=== PATIENT | female | born 1935 | race Two or more races ===

== ENCOUNTER 2017-08-11 13:11 | Emergency (ER) | payer OTHER ==
[~2017-08-11] VITALS: Ht 152.4 cm; Wt 61.2 kg
[~2017-08-11 13:11] MED LIST: ATACAND32 MG PO; SULAR20 MG PO
== END 2017-08-11 17:56 | disposition home or self-care (01) ==
LOC: ER 13:11
DX: S00.03XA Contusion of scalp, initial encounter (principal); W18.09XA Striking against other object with subsequent fall, initial encounter; Y93.01 Activity, walking, marching and hiking; Y92.480 Sidewalk as the place of occurrence of the external cause; Y99.8 Other external cause status

== ENCOUNTER → 2019-06-12 | Outpatient (CLI) | payer OTHER | END | disposition home or self-care (01) | LOC: MRI 12:59 | DX: I67.82 Cerebral ischemia (principal) | CPT/HCPCS: 70551 ==

== ENCOUNTER 2021-02-17 12:18 | Inpatient (IN) | payer OTHER ==
[~2021-02-17] VITALS: Ht 162.6 cm; Wt 68.0 kg
== END 2021-02-19 18:44 | disposition home or self-care (01) | DRG 812 ==
LOC: ER 12:18 → SEC-K 18:40 → SURG 18:40
PROVIDERS: ADMIT Internal Medicine; ATTEND Internal Medicine
PROC: 30233N1 Transfusion of Nonautologous Red Blood Cells into Peripheral Vein, Percutaneous Approach (ICD-10-PCS; principal; 2021-02-18)
PROC: 4A12X4Z Monitoring of Cardiac Electrical Activity, External Approach (ICD-10-PCS; 2021-02-18)
DX: D64.9 Anemia, unspecified (principal); R42 Dizziness and giddiness; R10.13 Epigastric pain; Z20.822 Contact with and (suspected) exposure to COVID-19; I10 Essential (primary) hypertension

== ENCOUNTER 2021-04-22 21:36 | Emergency (ER) | payer OTHER ==
[~2021-04-22] VITALS: Ht 157.5 cm; Wt 61.2 kg
[2021-04-22] MEDS ORDERED: TOPROL XL50 M1 (21:41)
[2021-04-22] MEDS ORDERED: MICARDIS HCT 81 EACH (21:42)
== END 2021-04-22 23:09 | disposition home or self-care (01) ==
LOC: ER 21:36
DX: K64.4 Residual hemorrhoidal skin tags (principal)

== ENCOUNTER 2021-07-28 20:55 | Emergency (ER) | payer OTHER ==
[~2021-07-28] VITALS: Ht 157.5 cm; Wt 61.7 kg
[~2021-07-28 20:55] MED LIST changes: +MICARDIS HCT 81 EACH; +TOPROL XL50 M1
[2021-07-28] MEDS ORDERED: CLONAZEPAM2 MG (21:05)
== END 2021-07-28 21:52 | disposition home or self-care (01) ==
LOC: ER 20:55
DX: M25.511 Pain in right shoulder (principal); S29.9XXA Unspecified injury of thorax, initial encounter; W06.XXXA Fall from bed, initial encounter; Y93.89 Activity, other specified; Y92.013 Bedroom of single-family (private) house as the place of occurrence of the external cause

== ENCOUNTER 2022-12-16 12:53 | Emergency (ER) | payer OTHER ==
[~2022-12-16] VITALS: Ht 152.4 cm; Wt 65.8 kg
[~2022-12-16 12:53] MED LIST changes: +CLONAZEPAM2 MG
== END 2022-12-16 18:22 | disposition home or self-care (01) ==
LOC: ER 12:53
DX: S62.109A Fracture of unspecified carpal bone, unspecified wrist, initial encounter for closed fracture (principal); W19.XXXA Unspecified fall, initial encounter; Y93.89 Activity, other specified; Y92.89 Other specified places as the place of occurrence of the external cause; Z88.0 Allergy status to penicillin; Z88.8 Allergy status to other drugs, medicaments and biological substances
CPT/HCPCS: 29125; 73030; 73060; 73080; 73090; 96372; 99284; J1885

== ENCOUNTER 2023-11-27 18:11 | Emergency (ER) | payer OTHER ==
[~2023-11-27] VITALS: Ht 152.4 cm; Wt 59.0 kg
[2023-11-27] MEDS ORDERED: GUAIFENESIN/DEXTROMETHORPHAN 10ML BLIST.PACK PO ONE ×2 (19:15→19:16)
[2023-11-27] MEDS ORDERED: METHYLPREDNISOLONE SOD SUCC 125 MG VIAL IV ONE (19:15)
[2023-11-27] MEDS ORDERED: METHYLPREDNISOLONE SOD SUCC 125 MG VIAL ONE (19:16)
[2023-11-27 19:45] LABS: HEMATOCRIT 34.3 % (36.0-45.00); HEMOGLOBIN 11.2 g/dL (12.0-15.00); MEAN CELL VOLUME 83.3 fL (80.00-100.00); MEAN CORPUSCULAR HEMOGLOBIN 27.3 pg (27.00-32.0); MEAN CORPUSCULAR HGB CONC 32.8 g/dl (32.0-36.0); PLATELET COUNT 323 K/uL (150-450); RED BLOOD COUNT 4.11 M/uL (4.00-6.00); RED CELL DISTRIBUTION WIDTH 14.5 % (11.5-14.5)
[2023-11-27 20:11] LABS: BILIRUBIN TOTAL 0.35 mg/dL (0.3-1.2); CALCIUM 9.6 mg/dL (8.5-10.1); CREATININE SERUM 1.16 mg/dL (0.55-1.02); GFR 44.09; GLOBULINA 5.8 G/DL (2.4-3.5); POTASSIUM 4.33 mEq/L (3.5-5.1); TOTAL PROTEIN 8.8 gm/dL (6.4-8.2)
[2023-11-27] MEDS ORDERED: ANALPRAM HC 2.530 GM RECTAL (21:52)
[2023-11-27] MEDS ORDERED: TUSNEL LIQUID178 ML PO (21:52)
[2023-11-27] MEDS ORDERED: ZITHROMAX500 MG PO (21:52)
== END 2023-11-27 22:01 | disposition home or self-care (01) ==
LOC: ER 18:12
PROVIDERS: General Practice
DX: K64.9 Unspecified hemorrhoids (principal); M94.0 Chondrocostal junction syndrome [Tietze]; R10.9 Unspecified abdominal pain; Z20.822 Contact with and (suspected) exposure to COVID-19; I10 Essential (primary) hypertension; Z88.0 Allergy status to penicillin; Z88.6 Allergy status to analgesic agent

== ENCOUNTER 2024-11-24 09:45 | Inpatient (IN) | payer OTHER ==
[~2024-11-24] VITALS: Ht 165.1 cm; Wt 65.8 kg
[~2024-11-24 09:45] MED LIST changes: +ANALPRAM HC 2.530 GM RECTAL; +TUSNEL LIQUID178 ML PO; +ZITHROMAX500 MG PO
[2024-11-24 10:03] VITALS: BP 127/68; O2SAT 97
--- NOTE | 2024-11-24 10:04 | NUR ---
PACIENTE FEMINA, ESTABLE, S/V EN PARAMETROS NORMALES, C/C SANGRADO RECTAL, UBICADA EN CAMA 8 EN ESPERA SER EVALUADA POR .
[2024-11-24] MEDS ORDERED: 0.9 % SODIUM CHLORIDE 1,000 ML IV SCH ×2 (11:15→21:45)
[2024-11-24 13:11] LABS: BASO % 0.6 % (0.1-1.2); EOS # 0.06 (0.04-0.54); EOS % 0.6 % (0.7-7.0); LYMPH # 1.98 (1.18-3.74); LYMPH % 19.7 % (19.3-53.1); MEAN PLATELET VOLUME 10.40 fl (9.4-12.4); MONO # 0.57 (0.24-0.82); MONO % 5.7 % (4.7-12.5); NEUT # 7.36 (1.56-6.13); NEUT % 73.1 % (34.0-71.1); RED CELL DISTRIBUTION WIDTH 13.8 % (11.6-14.4)
[2024-11-24 13:31] LABS: INR 1.09
[2024-11-24 13:38] LABS: BUN CREA RATIO 18.0 (7.0-25.0); CREATININE SERUM 1.04 mg/dL (0.55-1.02); GFR 49.89; GLUCOSE FASTING 107.0 mg/dL (65-100); OSMOLALITY SERUM 290.0 MOSM/KG (275-295)
--- NOTE | 2024-11-24 13:46 | NUR ---
PTE EVALUADO POR DR. IBRAHIM, PRESENTANDO DOLOR ABDOMINAL, SE COLECTAN MUESTRAS DE JOVITA BAJO MEDIDAS ASEPTICA, SE REALIZA EKG Y SE ORIENTA SOBRE PROCEDIMIENTOS RELAIZADOS. CLIENTE ALERTA Y ORIENTADO AL MOMENTO DE LA INTERVENCION POR RN, SE ENCUENTRA TOMANDO CONTRASTE PO PARA REALIZACION DE ESTUDIO RADIOLOGICO.
[2024-11-24 14:55] LABS: URINE APPEARANCE Clear; URINE BILIRRUBIN Negative (NEGATIVE); URINE BLOOD Negative; URINE COLOR Yellow; URINE GLUCOSE Negative (NEGATIVE); URINE KETONE Negative (NEGATIVE); URINE LEUKOCYTE Small; URINE NITRATE Negative; URINE PROTEIN Negative (NEGATIVE); URINE UROBILINOGEN 0.2 E.U./dl
[2024-11-24 14:58] LABS: URINE BACTERIA 338.3 uL (0.0-1933); URINE EPITHELIAL CELLS 23.8 uL (0.0-38.8); URINE WBC 24.2 uL (0.0-23.2)
[2024-11-24 15:08] LABS: URINE CAST 0.29 uL (0.0-1.40); URINE RBC 0.5 uL (0.0-20.8)
--- NOTE | 2024-11-24 16:36 | NUR ---
PTE PENDIENTE A RESULTADO DE CT.
[2024-11-24] MEDS ORDERED: PANTOPRAZOLE SODIUM 40 MG/VIAL VIAL IV SCH (21:43)
[2024-11-24] MEDS ORDERED: CIPROFLOXACIN IN 5 % DEXTROSE 200 ML IV SCH (21:43)
[2024-11-24] MEDS ORDERED: ONDANSETRON HCL 4 MG in 0.9 % SODIUM CHLORIDE 50 ML IV PRN (21:45)
[2024-11-24] MEDS ORDERED: CLONAZEPAM 1 MG TABLET PO ONE (23:00)
[2024-11-25] MEDS ORDERED: METOPROLOL SUCCINATE 50 MG TAB.SR.24H PO SCH (09:00)
== END 2024-11-25 07:00 | disposition left against medical advice (07) | DRG 379 ==
LOC: ER 09:45 → SEC-K 22:02
PROVIDERS: Emergency Medicine; ADMIT Internal Medicine; ATTEND Internal Medicine
PROC: BW21ZZZ Computerized Tomography (CT Scan) of Abdomen and Pelvis (ICD-10-PCS; principal; 2024-11-24)
DX: K62.5 Hemorrhage of anus and rectum (principal); Z53.29 Procedure and treatment not carried out because of patient's decision for other reasons

== ENCOUNTER 2024-11-27 15:27 | Inpatient (IN) | payer OTHER ==
[~2024-11-27] VITALS: Ht 157.5 cm; Wt 59.0 kg
[2024-11-27] MEDS ORDERED: PEPCID AC10 MG PO (15:48)
[2024-11-27] MEDS ORDERED: MICARDIS20 MG PO (15:48)
[2024-11-27] MEDS ORDERED: PROTONIX20 MG (15:48)
--- NOTE | 2024-11-27 15:48 | NUR ---
SE RECIBE PACIENTE EN AMBULANCIA ALERTA Y CONCIENTE X3 ACOMPANADO DE QUINTERO HIJA. LA MISMA REFIERE QUE LA PACIENTE VIENE POR ANEMIA. SE PROPCEDE A LOGAN S/V A LA PACIENTE Y SE UBICA.
[2024-11-27] MEDS ORDERED: PANTOPRAZOLE SODIUM 40 MG in 0.9 % SODIUM CHLORIDE 8 ML IV PUSH STA (16:16)
[2024-11-27] MEDS ORDERED: CIPROFLOXACIN IN 5 % DEXTROSE 400 MG/200 ML PIGGYBAG IV ONE ×2 (16:29→16:30)
[2024-11-27] MEDS ORDERED: METRONIDAZOLE/SODIUM CHLORIDE 500 MG/100 ML PIGGYBACK IV ONE ×2 (16:29→16:30)
[2024-11-27] MEDS ORDERED: 0.9 % SODIUM CHLORIDE 1,000 ML IV SCH ×3 (16:30→18:00)
[2024-11-27 17:21] LABS: BASO % 0.6 % (0.1-1.2); EOS # 0.27 (0.04-0.54); EOS % 2.8 % (0.7-7.0); LYMPH # 2.61 (1.18-3.74); LYMPH % 27.4 % (19.3-53.1); MEAN PLATELET VOLUME 10.60 fl (9.4-12.4); MONO # 0.89 (0.24-0.82); MONO % 9.3 % (4.7-12.5); NEUT # 5.68 (1.56-6.13); NEUT % 59.6 % (34.0-71.1); RED CELL DISTRIBUTION WIDTH 14.2 % (11.6-14.4)
--- NOTE | 2024-11-27 17:32 | NUR ---
MR. BALDWIN EDUCA A PTE SOBRE TX MEDICO, SE CARLO MUESTRAS DE LABORATORIO UTILIZANDO MEDIDAS ASEPTICAS. SE COLOCA H/L TREVER DE EDEMA. SE ADMINISTRAN MEDICAMENTOS ROHINI ORDEN MEDICA.
[2024-11-27 17:39] LABS: INR 1.02
[2024-11-27 17:45] LABS: ALT/SGPT 16.0 U/L (12-78); AST/SGOT 24.0 U/L (15-37); BILIRUBIN TOTAL 0.33 mg/dL (0.3-1.2); BUN CREA RATIO 13.0 (7.0-25.0); CREATININE SERUM 1.29 mg/dL (0.55-1.02); GFR 38.91; GLOBULINA 4.4 G/DL (2.4-3.5); GLUCOSE FASTING 99.0 mg/dL (65-100); OSMOLALITY SERUM 288.0 MOSM/KG (275-295)
--- NOTE | 2024-11-27 17:58 | NUR ---
SE ORIENTA PACIENTE SOBRE TX MEDICO Y EL MISMO REFIERE ENTENDER Y ACEPTAR FELICITY. SE PROCDEDE A LOGAN MUESTRAS DE LAB. BAJO MEDIDAS ASSEPTICAS. SE PROCEDE A CANALIZAR PACIENTE BAJO MEDIDAS ASEPTICAS TREVER DE EDEMA Y ERITEMA. SE PROCEDE A ADMINISTRAR MEDICAMENTO ROHINI ORDEN MEDICA BAJO MEDIDAS ASEPTICAS.
[2024-11-27] MEDS ORDERED: ONDANSETRON HCL 4 MG in 0.9 % SODIUM CHLORIDE 50 ML IV PRN (18:15)
[2024-11-27 18:40] LABS: URINE APPEARANCE Clear; URINE BILIRRUBIN Negative (NEGATIVE); URINE BLOOD Negative; URINE COLOR Yellow; URINE GLUCOSE Negative (NEGATIVE); URINE KETONE Negative (NEGATIVE); URINE LEUKOCYTE Trace; URINE NITRATE Negative; URINE PROTEIN Negative (NEGATIVE); URINE UROBILINOGEN 0.2 E.U./dl
[2024-11-27 18:44] LABS: URINE BACTERIA 57.5 uL (0.0-1933); URINE EPITHELIAL CELLS 4.1 uL (0.0-38.8); URINE WBC 20.8 uL (0.0-23.2)
[2024-11-27 18:52] LABS: URINE CAST 0.00 uL (0.0-1.40); URINE RBC 0.1 uL (0.0-20.8)
[2024-11-27] MEDS ORDERED: CIPROFLOXACIN IN 5 % DEXTROSE 200 ML IV SCH (21:00)
[2024-11-27] MEDS ORDERED: CLONAZEPAM 1 MG TABLET PO ONE (22:30)
[2024-11-28] MEDS ORDERED: METRONIDAZOLE/SODIUM CHLORIDE 500 MG/100 ML PIGGYBACK IV ONE ×3 (01:57→17:15)
[2024-11-28 07:29] VITALS: BP 175/91; O2SAT 96
[2024-11-28] MEDS ORDERED: hydrALAZINE HCL 20 MG VIAL IV PRN (07:45)
[2024-11-28] MEDS ORDERED: DIPHENHYDRAMINE HCL 50 MG/ML VIAL 1ML IV NR (09:00)
[2024-11-28] MEDS ORDERED: PANTOPRAZOLE SODIUM 40 MG/VIAL VIAL IV SCH (09:00)
[2024-11-28] MEDS ORDERED: METOPROLOL SUCCINATE 50 MG TAB.SR.24H PO SCH (09:00)
[2024-11-28] MEDS ORDERED: HALOPERIDOL LACTATE 5 MG/ML AMPUL IM NR (09:00)
[2024-11-28] MEDS ORDERED: CIPROFLOXACIN IN 5 % DEXTROSE 400 MG/200 ML PIGGYBAG IV ONE (09:25)
[2024-11-28] MEDS ORDERED: LACTOBACILLUS ACIDOPHILUS 1 CAP CAP PO SCH (17:00)
[2024-11-28] MEDS ORDERED: LACTOBACILLUS ACIDOPHILUS 1 CAP CAP PO ONE (17:16)
[2024-11-28 22:32] VITALS: BP 134/76; O2SAT 96
[2024-11-29 04:00] VITALS: BP 130/70; O2SAT 95
[2024-11-29 08:30] VITALS: BP 134/78; O2SAT 95
[2024-11-29] MEDS ORDERED: CIPROFLOXACIN IN 5 % DEXTROSE 200 ML IV SCH (09:00)
[2024-11-29 16:00] VITALS: BP 161/77; O2SAT 100
[2024-11-30 00:31] VITALS: BP 140/73; O2SAT 100
[2024-11-30 03:31] LABS: BASO % 0.4 % (0.1-1.2); EOS # 0.35 (0.04-0.54); EOS % 3.1 % (0.7-7.0); LYMPH # 1.75 (1.18-3.74); LYMPH % 15.7 % (19.3-53.1); MEAN PLATELET VOLUME 10.40 fl (9.4-12.4); MONO # 1.60 (0.24-0.82); NEUT # 7.38 (1.56-6.13); NEUT % 66.3 % (34.0-71.1); RED CELL DISTRIBUTION WIDTH 14.6 % (11.6-14.4)
[2024-11-30 03:36] LABS: MONO % 14.3 % (4.7-12.5)
[2024-11-30 03:49] LABS: BUN CREA RATIO 12.0 (7.0-25.0); CREATININE SERUM 1.01 mg/dL (0.55-1.02); GFR 51.61; GLUCOSE FASTING 129.0 mg/dL (65-100); OSMOLALITY SERUM 286.0 MOSM/KG (275-295)
[2024-11-30] MEDS ORDERED: MAGNESIUM SULFATE IN WATER 50 ML IV NR (08:00)
[2024-11-30] MEDS ORDERED: CIPRO500 MG PO (08:16)
[2024-11-30] MEDS ORDERED: METRONIDAZOLE500 MG PO (08:17)
[2024-11-30] MEDS ORDERED: INTESTINEX680 M1 PO (08:18)
[2024-11-30 08:47] VITALS: BP 144/80; O2SAT 97
== END 2024-11-30 12:55 | disposition home or self-care (01) | DRG 392 ==
LOC: ER 15:27 → SEC-K 20:36 → SURH 11-28 21:25
PROVIDERS: General Practice; ADMIT Internal Medicine; ATTEND Internal Medicine
PROC: B24BYZZ Ultrasonography of Heart with Aorta using Other Contrast (ICD-10-PCS; principal; 2024-11-27)
PROC: 30233N1 Transfusion of Nonautologous Red Blood Cells into Peripheral Vein, Percutaneous Approach (ICD-10-PCS; 2024-11-28)
DX: K52.9 Noninfective gastroenteritis and colitis, unspecified (principal); K62.5 Hemorrhage of anus and rectum; D64.9 Anemia, unspecified

== ENCOUNTER 2024-12-12 04:19 | Emergency (ER) | payer OTHER ==
[~2024-12-12] VITALS: Ht 157.5 cm; Wt 59.0 kg
[~2024-12-12 04:19] MED LIST changes: +CIPRO500 MG PO; +INTESTINEX680 M1 PO; +METRONIDAZOLE500 MG PO; +MICARDIS20 MG PO; +PEPCID AC10 MG PO; +PROTONIX20 MG
[2024-12-12] MEDS ORDERED: CLONAZEPAM1 MG (04:37)
[2024-12-12 05:45] LABS: BASO % 0.7 % (0.1-1.2); EOS # 0.49 (0.04-0.54); EOS % 4.7 % (0.7-7.0); LYMPH # 2.41 (1.18-3.74); LYMPH % 23.0 % (19.3-53.1); MEAN PLATELET VOLUME 10.90 fl (9.4-12.4); MONO # 1.03 (0.24-0.82); MONO % 9.8 % (4.7-12.5); NEUT # 6.47 (1.56-6.13); NEUT % 61.5 % (34.0-71.1); RED CELL DISTRIBUTION WIDTH 15.2 % (11.6-14.4)
[2024-12-12 06:01] LABS: BUN CREA RATIO 12.0 (7.0-25.0); CREATININE SERUM 0.94 mg/dL (0.55-1.02); GLUCOSE FASTING 96.0 mg/dL (65-100); OSMOLALITY SERUM 284.0 MOSM/KG (275-295)
[2024-12-12 06:02] LABS: GFR 56.07
== END 2024-12-12 06:52 | disposition home or self-care (01) ==
LOC: ER 04:19
DX: S09.8XXA Other specified injuries of head, initial encounter (principal); W06.XXXA Fall from bed, initial encounter; Y93.89 Activity, other specified; Y92.89 Other specified places as the place of occurrence of the external cause; Y99.8 Other external cause status; K64.4 Residual hemorrhoidal skin tags; M43.6 Torticollis; Z88.0 Allergy status to penicillin; Z88.6 Allergy status to analgesic agent

== ENCOUNTER 2025-01-04 10:48 | Emergency (ER) | payer OTHER ==
[~2025-01-04] VITALS: Ht 157.5 cm; Wt 59.0 kg
[~2025-01-04 10:48] MED LIST changes: +CLONAZEPAM1 MG
[2025-01-04] MEDS ORDERED: 0.9 % SODIUM CHLORIDE 1,000 ML IV SCH (11:00)
[2025-01-04 11:54] LABS: BASO % 0.5 % (0.1-1.2); EOS # 0.15 (0.04-0.54); EOS % 1.6 % (0.7-7.0); LYMPH # 2.27 (1.18-3.74); LYMPH % 24.1 % (19.3-53.1); MEAN PLATELET VOLUME 10.20 fl (9.4-12.4); MONO # 1.03 (0.24-0.82); MONO % 10.9 % (4.7-12.5); NEUT # 5.89 (1.56-6.13); NEUT % 62.5 % (34.0-71.1); RED CELL DISTRIBUTION WIDTH 15.5 % (11.6-14.4)
[2025-01-04 12:28] LABS: INR 1.0
[2025-01-04 12:39] LABS: BUN CREA RATIO 16.0 (7.0-25.0); CREATININE SERUM 1.16 mg/dL (0.55-1.02); GFR 43.99; GLUCOSE FASTING 124.0 mg/dL (65-100); OSMOLALITY SERUM 287.0 MOSM/KG (275-295)
[2025-01-04 13:00] LABS: URINE APPEARANCE Clear; URINE BILIRRUBIN Negative (NEGATIVE); URINE BLOOD Negative; URINE COLOR Yellow; URINE GLUCOSE Negative (NEGATIVE); URINE KETONE Negative (NEGATIVE); URINE LEUKOCYTE Trace; URINE NITRATE Negative; URINE PROTEIN Negative (NEGATIVE); URINE UROBILINOGEN 0.2 E.U./dl
[2025-01-04 13:04] LABS: URINE BACTERIA 229.2 uL (0.0-1933); URINE EPITHELIAL CELLS 13.9 uL (0.0-38.8); URINE WBC 17.3 uL (0.0-23.2)
[2025-01-04 13:06] LABS: URINE CAST 0.43 uL (0.0-1.40); URINE RBC 0.5 uL (0.0-20.8)
== END 2025-01-04 15:48 | disposition home or self-care (01) ==
LOC: ER 10:48
PROVIDERS: Emergency Medicine
DX: K64.4 Residual hemorrhoidal skin tags (principal); I10 Essential (primary) hypertension; Z88.0 Allergy status to penicillin; Z88.6 Allergy status to analgesic agent
CPT/HCPCS: 36415; 96365; 96366; 99282; J7030

== ENCOUNTER 2025-01-07 22:41 | Inpatient (IN) | payer OTHER ==
[~2025-01-07] VITALS: Ht 157.5 cm; Wt 63.5 kg
[2025-01-07] MEDS ORDERED: TELMISARTAN-HC1 EACH PO (22:45)
[2025-01-07] MEDS ORDERED: RINGERS SOLUTION,LACTATED 1,000 ML IV SCH (23:45)
[2025-01-07] MEDS ORDERED: FAMOTIDINE/PF 20 MG/2 ML VIAL IV ONE (23:45)
[2025-01-08] MEDS ORDERED: FAMOTIDINE/PF 20 MG/2 ML VIAL ONE ×2 (00:02→17:38)
[2025-01-08 00:09] LABS: BASO % 0.4 % (0.1-1.2); EOS # 0.23 (0.04-0.54); EOS % 2.4 % (0.7-7.0); LYMPH # 1.94 (1.18-3.74); LYMPH % 19.9 % (19.3-53.1); MEAN PLATELET VOLUME 10.20 fl (9.4-12.4); MONO # 1.36 (0.24-0.82); NEUT # 6.10 (1.56-6.13); NEUT % 62.7 % (34.0-71.1); RED CELL DISTRIBUTION WIDTH 15.6 % (11.6-14.4)
[2025-01-08 00:27] LABS: MONO % 14.0 % (4.7-12.5)
[2025-01-08 00:34] LABS: INR 1.0
[2025-01-08 00:39] LABS: ALT/SGPT 14.0 U/L (12-78); AST/SGOT 22.0 U/L (15-37); BILIRUBIN TOTAL 0.29 mg/dL (0.3-1.2); BUN CREA RATIO 11.0 (7.0-25.0); CREATININE SERUM 1.41 mg/dL (0.55-1.02); GFR 35.12; GLOBULINA 4.6 G/DL (2.4-3.5); GLUCOSE FASTING 121.0 mg/dL (65-100); OSMOLALITY SERUM 287.0 MOSM/KG (275-295)
[2025-01-08 05:28] LABS: BASO % 0.5 % (0.1-1.2); EOS # 0.37 (0.04-0.54); EOS % 3.1 % (0.7-7.0); LYMPH # 2.72 (1.18-3.74); LYMPH % 23.1 % (19.3-53.1); MEAN PLATELET VOLUME 10.30 fl (9.4-12.4); MONO # 1.66 (0.24-0.82); NEUT # 6.95 (1.56-6.13); NEUT % 58.9 % (34.0-71.1); RED CELL DISTRIBUTION WIDTH 15.5 % (11.6-14.4)
[2025-01-08 05:34] LABS: MONO % 14.1 % (4.7-12.5)
[2025-01-08] MEDS ORDERED: 0.9 % SODIUM CHLORIDE 1,000 ML IV SCH (17:15)
[2025-01-08] MEDS ORDERED: FAMOTIDINE/PF 20 MG in 0.9 % SODIUM CHLORIDE 8 ML IV PUSH SCH (17:20)
[2025-01-08] MEDS ORDERED: CLONAZEPAM 1 MG TABLET PO SCH (17:21)
[2025-01-08] MEDS ORDERED: ONDANSETRON HCL 4 MG in 0.9 % SODIUM CHLORIDE 50 ML IV PRN (17:30)
[2025-01-08] MEDS ORDERED: MORPHINE SULFATE 4 MG/ML CARTRIDGE IV PRN (17:30)
[2025-01-08 18:29] LABS: ob POSITIVE (NEGATIVE)
[2025-01-08] MEDS ORDERED: CIPROFLOXACIN IN 5 % DEXTROSE 200 ML IV SCH (21:00)
[2025-01-08 22:35] LABS: URINE APPEARANCE Cloudy; URINE BILIRRUBIN Negative (NEGATIVE); URINE BLOOD Trace; URINE COLOR Yellow; URINE GLUCOSE Negative (NEGATIVE); URINE KETONE 15 (NEGATIVE); URINE LEUKOCYTE Large; URINE NITRATE Negative; URINE PROTEIN Negative (NEGATIVE); URINE UROBILINOGEN 0.2 E.U./dl
[2025-01-08 22:38] LABS: URINE BACTERIA 1730.3 uL (0.0-1933); URINE CAST 1.61 uL (0.0-1.40); URINE EPITHELIAL CELLS 118.9 uL (0.0-38.8); URINE RBC 9.9 uL (0.0-20.8); URINE WBC 338.1 uL (0.0-23.2)
[2025-01-09 00:45] VITALS: BP 142/71; O2SAT 95
[2025-01-09 08:00] VITALS: BP 126/64; O2SAT 99
[2025-01-09] MEDS ORDERED: METOPROLOL SUCCINATE 50 MG TAB.SR.24H PO SCH (09:00)
[2025-01-09] MEDS ORDERED: LOSARTAN/HYDROCHLOROTHIAZIDE 1 UDTAB TABLET PO SCH (09:00)
[2025-01-09] MEDS ORDERED: DEXTROSE 5 %-0.45 % SOD CHLORD 1,000 ML IV SCH (13:00)
[2025-01-09] MEDS ORDERED: LACTOBACILLUS ACIDOPHILUS 1 CAP CAP PO SCH (17:00)
[2025-01-09] MEDS ORDERED: HALOPERIDOL LACTATE 5 MG/ML AMPUL ONE (21:31)
[2025-01-09] MEDS ORDERED: LORazepam 2 MG/ML VIAL IM STA ×2 (21:34→21:38)
[2025-01-09] MEDS ORDERED: LORazepam 2 MG/ML VIAL ONE (21:34)
[2025-01-09] MEDS ORDERED: HALOPERIDOL LACTATE 5 MG/ML AMPUL IM STA (21:35)
[2025-01-10 01:07] VITALS: BP 128/65; O2SAT 95
[2025-01-10 10:35] VITALS: BP 128/71; O2SAT 95
[2025-01-10 11:26] LABS: BASO % 0.7 % (0.1-1.2); EOS # 0.30 (0.04-0.54); EOS % 3.1 % (0.7-7.0); LYMPH # 1.71 (1.18-3.74); LYMPH % 17.6 % (19.3-53.1); MEAN PLATELET VOLUME 10.50 fl (9.4-12.4); MONO # 1.29 (0.24-0.82); NEUT # 6.28 (1.56-6.13); NEUT % 64.6 % (34.0-71.1); RED CELL DISTRIBUTION WIDTH 17.5 % (11.6-14.4)
[2025-01-10 11:28] LABS: MONO % 13.3 % (4.7-12.5)
[2025-01-10 11:29] LABS: ERYTHROCYTE SEDIMENTATION RATE 33 mm/hr (0-30)
[2025-01-10 11:51] LABS: ALT/SGPT 20.0 U/L (12-78); AST/SGOT 38.0 U/L (15-37); BILIRUBIN TOTAL 0.87 mg/dL (0.3-1.2); BUN CREA RATIO 9.0 (7.0-25.0); CREATININE SERUM 0.88 mg/dL (0.55-1.02); GFR 60.5; GLOBULINA 3.5 G/DL (2.4-3.5); GLUCOSE FASTING 90.0 mg/dL (65-100); OSMOLALITY SERUM 287.0 MOSM/KG (275-295)
[2025-01-10 16:02] VITALS: BP 108/54; O2SAT 96
[2025-01-10] MEDS ORDERED: DIPHENHYDRAMINE HCL 50 MG/ML VIAL 1ML IM SCH (21:00)
[2025-01-10] MEDS ORDERED: HALOPERIDOL LACTATE 5 MG/ML AMPUL IM SCH (21:00)
[2025-01-11 00:39] VITALS: BP 134/47; O2SAT 90
[2025-01-11 08:21] VITALS: BP 126/70; O2SAT 99
[2025-01-11] MEDS ORDERED: POTASSIUM CHLORIDE IN WATER 40 MEQ/100 ML PIGGYBAG IV ONE (09:36)
[2025-01-11] MEDS ORDERED: POTASSIUM CHLORIDE IN WATER 40 MEQ/100 ML PIGGYBAG IV SCH ×3 (09:38→21:00)
[2025-01-11 17:17] VITALS: BP 102/46; O2SAT 100
[2025-01-12 00:09] VITALS: BP 126/65; O2SAT 97
[2025-01-12 05:58] LABS: BASO % 0.5 % (0.1-1.2); EOS # 0.51 (0.04-0.54); EOS % 4.4 % (0.7-7.0); LYMPH # 1.96 (1.18-3.74); LYMPH % 17.0 % (19.3-53.1); MEAN PLATELET VOLUME 10.30 fl (9.4-12.4); MONO # 1.71 (0.24-0.82); NEUT # 7.11 (1.56-6.13); NEUT % 61.7 % (34.0-71.1); RED CELL DISTRIBUTION WIDTH 17.3 % (11.6-14.4)
[2025-01-12 06:18] LABS: MONO % 14.8 % (4.7-12.5)
[2025-01-12 07:22] LABS: BUN CREA RATIO 6.0 (7.0-25.0); CREATININE SERUM 0.82 mg/dL (0.55-1.02); GFR 65.64; GLUCOSE FASTING 140.0 mg/dL (65-100); OSMOLALITY SERUM 286.0 MOSM/KG (275-295)
[2025-01-12 08:29] VITALS: BP 117/70; O2SAT 97
[2025-01-12] MEDS ORDERED: POTASSIUM PHOS,M-BASIC-D-BASIC 18 MM in 0.9 % SODIUM CHLORIDE 500 ML IV SCH (10:00)
[2025-01-12] MEDS ORDERED: SODIUM CL 0.9% 500 ML IV.SOLN. ONE (14:16)
[2025-01-13 06:55] LABS: BASO % 0.4 % (0.1-1.2); EOS # 0.35 (0.04-0.54); EOS % 3.0 % (0.7-7.0); LYMPH # 2.10 (1.18-3.74); LYMPH % 18.0 % (19.3-53.1); MEAN PLATELET VOLUME 10.50 fl (9.4-12.4); MONO # 2.03 (0.24-0.82); NEUT # 6.85 (1.56-6.13); NEUT % 59.0 % (34.0-71.1); RED CELL DISTRIBUTION WIDTH 16.9 % (11.6-14.4)
[2025-01-13 07:03] LABS: MONO % 17.4 % (4.7-12.5)
[2025-01-13] MEDS ORDERED: MAGNESIUM SULFATE IN WATER 50 ML IV SCH (08:00)
[2025-01-13 08:30] VITALS: BP 114/64; O2SAT 97
[2025-01-13] MEDS ORDERED: SOD FERRIC GLUC COMPLX/SUCROSE 62.5 MG in 0.9 % SODIUM CHLORIDE 50 ML IV SCH (09:00)
[2025-01-13] MEDS ORDERED: PANTOPRAZOLE SODIUM 40 MG TABLET.DR PO SCH (09:00)
[2025-01-13] MEDS ORDERED: EPOETIN ALFA-EPBX 10,000 UNIT/ML VIAL (Retacrit) SUBCUTANEO SCH (09:00)
[2025-01-13 10:31] LABS: ABG PH 7.385 (7.35-7.45); ABG PO2 114.9 mmHg (80-100); BICARBONATE 30.1 mmol/l (23-25); o2 24 %
[2025-01-13] MEDS ORDERED: SODIUM CL 0.9% 50 ML IV.SOLN IV ONE (11:30)
[2025-01-13 16:00] VITALS: BP 111/59; O2SAT 98
[2025-01-13] MEDS ORDERED: POTASSIUM PHOS,M-BASIC-D-BASIC 18 MM in 0.9 % SODIUM CHLORIDE 500 ML IV ONE (17:00)
[2025-01-14 01:03] VITALS: BP 119/77; O2SAT 95
[2025-01-14 07:25] LABS: BUN CREA RATIO 9.0 (7.0-25.0); CREATININE SERUM 0.94 mg/dL (0.55-1.02); GFR 56.07; GLUCOSE FASTING 103.0 mg/dL (65-100); OSMOLALITY SERUM 276.0 MOSM/KG (275-295)
[2025-01-14 08:00] VITALS: BP 117/63; O2SAT 98
[2025-01-14 14:09] LABS: BASO % 0.4 % (0.1-1.2); EOS # 0.32 (0.04-0.54); EOS % 2.9 % (0.7-7.0); LYMPH # 1.80 (1.18-3.74); LYMPH % 16.4 % (19.3-53.1); MEAN PLATELET VOLUME 10.30 fl (9.4-12.4); MONO # 1.96 (0.24-0.82); NEUT # 6.57 (1.56-6.13); NEUT % 59.8 % (34.0-71.1); RED CELL DISTRIBUTION WIDTH 17.3 % (11.6-14.4)
[2025-01-14 15:01] LABS: MONO % 17.9 % (4.7-12.5)
[2025-01-14 15:02] LABS: BAND MAN 22.0 %; EOSINOPHIL MAN 3.0 %; LYMPHOCYTE MAN 10.0 %; MONOCYTE MAN 15.0 %; NEUTROPHILS MAN 44.0 %
[2025-01-14 16:26] VITALS: BP 110/70; O2SAT 95
[2025-01-15 02:25] VITALS: BP 112/65; O2SAT 98
[2025-01-15 08:04] VITALS: BP 100/57; O2SAT 99
[2025-01-15 11:11] VITALS: BP 101/63
[2025-01-15] MEDS ORDERED: LACTOBACILLUS ACIDOPHILUS 1 CAP CAP PO SCH (17:00)
[2025-01-15 17:05] VITALS: BP 96/61; O2SAT 97
[2025-01-16 01:12] VITALS: BP 98/67; O2SAT 97
[2025-01-16 08:00] VITALS: BP 113/66; O2SAT 95
[2025-01-16 16:00] VITALS: BP 113/68; O2SAT 97
[2025-01-16] MEDS ORDERED: CLONAZEPAM 1 MG TABLET PO SCH (21:15)
[2025-01-16 23:57] VITALS: BP 106/62; O2SAT 97
[2025-01-17 07:45] LABS: BASO % 0.6 % (0.1-1.2); EOS # 0.28 (0.04-0.54); EOS % 2.1 % (0.7-7.0); LYMPH # 1.64 (1.18-3.74); LYMPH % 12.5 % (19.3-53.1); MEAN PLATELET VOLUME 10.40 fl (9.4-12.4); MONO # 2.12 (0.24-0.82); NEUT # 8.84 (1.56-6.13); NEUT % 67.3 % (34.0-71.1); RED CELL DISTRIBUTION WIDTH 17.5 % (11.6-14.4)
[2025-01-17 07:46] LABS: MONO % 16.1 % (4.7-12.5)
[2025-01-17 08:13] VITALS: BP 118/67; O2SAT 98
[2025-01-17] MEDS ORDERED: MEROPENEM 500 MG/VIAL VIAL IV SCH (12:00)
[2025-01-17] MEDS ORDERED: CANDESARTAN CILEXETIL 8 MG TAB PO NR (12:30)
[2025-01-17 16:00] VITALS: BP 117/60; O2SAT 97
[2025-01-17] MEDS ORDERED: EMPAGLIFLOZIN 10 MG TABLET PO SCH (17:00)
[2025-01-17 17:14] LABS: URINE BILIRRUBIN NEGATIVE (NEGATIVE); URINE BLOOD LARGE; URINE GLUCOSE NEGATIVE (NEGATIVE); URINE KETONE NEGATIVE (NEGATIVE); URINE LEUKOCYTE TRACE; URINE NITRATE POSITIVE; URINE PROTEIN NEGATIVE (NEGATIVE); URINE UROBILINOGEN 0.2 E.U./dl
[2025-01-17 17:36] LABS: URINE APPEARANCE CLOUDY; URINE COLOR YELLOW
[2025-01-17 17:37] LABS: URINE EPITHELIAL CELLS 0-4 /HPF; URINE RBC 0-3 /HPF
[2025-01-17 17:38] LABS: URINE YEAST FEW /hpf
[2025-01-17 17:46] LABS: URINE BACTERIA MODERATE
[2025-01-17 21:20] LABS: ob POSITIVE (NEGATIVE)
[2025-01-17 21:31] LABS: FECAL LEUKOCYTES POSITIVE (NEGATIVE)
[2025-01-17 23:43] VITALS: BP 106/64; O2SAT 98
[2025-01-18 06:29] LABS: BASO % 0.7 % (0.1-1.2); EOS # 0.36 (0.04-0.54); EOS % 2.4 % (0.7-7.0); LYMPH # 1.81 (1.18-3.74); LYMPH % 12.0 % (19.3-53.1); MEAN PLATELET VOLUME 9.40 fl (9.4-12.4); MONO # 2.34 (0.24-0.82); NEUT # 10.24 (1.56-6.13); NEUT % 68.0 % (34.0-71.1); RED CELL DISTRIBUTION WIDTH 17.5 % (11.6-14.4)
[2025-01-18 07:06] LABS: BUN CREA RATIO 11.0 (7.0-25.0); CREATININE SERUM 1.26 mg/dL (0.55-1.02); GFR 39.98; GLUCOSE FASTING 104.0 mg/dL (65-100); OSMOLALITY SERUM 280.0 MOSM/KG (275-295)
[2025-01-18 07:22] LABS: MONO % 15.5 % (4.7-12.5)
[2025-01-18] MEDS ORDERED: SODIUM CHLORIDE 0.45 % 1,000 ML IV SCH (07:45)
[2025-01-18] MEDS ORDERED: MAGNESIUM SULFATE/D5W 1GM/100ML PIGGYBAG IV NR (08:00)
[2025-01-18 08:14] VITALS: BP 129/68; O2SAT 97
[2025-01-18] MEDS ORDERED: POTASSIUM CHLORIDE IN WATER 100 ML IV SCH ×2 (09:00)
[2025-01-18] MEDS ORDERED: CANDESARTAN CILEXETIL 8 MG TAB PO SCH (09:00)
[2025-01-18] MEDS ORDERED: FLUCONAZOLE IN NACL,ISO-OSM 50 ML IV SCH (10:00)
[2025-01-18 16:00] VITALS: BP 107/50; O2SAT 91
[2025-01-18 20:00] VITALS: O2SAT 97
[2025-01-19 00:50] VITALS: BP 98/62; O2SAT 96
[2025-01-19 08:47] VITALS: BP 115/73; O2SAT 99
[2025-01-19] MEDS ORDERED: FLUCONAZOLE IN NACL,ISO-OSM 2 MG/ML ML IV SCH (09:00)
[2025-01-19] MEDS ORDERED: METHYLPREDNISOLONE SOD SUCC 125 MG VIAL IV NR (09:45)
[2025-01-19] MEDS ORDERED: DIPHENHYDRAMINE HCL 50 MG/ML VIAL 1ML IV NR (09:45)
[2025-01-19 11:46] LABS: BASO % 0.5 % (0.1-1.2); EOS # 0.18 (0.04-0.54); EOS % 1.5 % (0.7-7.0); LYMPH # 1.70 (1.18-3.74); LYMPH % 13.9 % (19.3-53.1); MEAN PLATELET VOLUME 9.60 fl (9.4-12.4); MONO # 1.13 (0.24-0.82); MONO % 9.2 % (4.7-12.5); NEUT # 8.99 (1.56-6.13); NEUT % 73.5 % (34.0-71.1); RED CELL DISTRIBUTION WIDTH 18.6 % (11.6-14.4)
[2025-01-19 11:52] LABS: ERYTHROCYTE SEDIMENTATION RATE 127 mm/hr (0-30)
[2025-01-19 12:34] LABS: ALT/SGPT 18.0 U/L (12-78); AST/SGOT 54.0 U/L (15-37); BILIRUBIN TOTAL 0.44 mg/dL (0.3-1.2); BUN CREA RATIO 13.0 (7.0-25.0); CREATININE SERUM 1.17 mg/dL (0.55-1.02); GFR 43.55; GLOBULINA 4.7 G/DL (2.4-3.5); GLUCOSE FASTING 97.0 mg/dL (65-100); OSMOLALITY SERUM 275.0 MOSM/KG (275-295)
[2025-01-19 15:48] VITALS: BP 107/67; O2SAT 96
[2025-01-19] MEDS ORDERED: AA 4.25%/CALCIUM/LYTES/DEX 10% 1,000 ML CENTRAL SCH (17:00)
[2025-01-19] MEDS ORDERED: QUETIAPINE FUMARATE 25 MG TABLET PO SCH (21:00)
[2025-01-20 01:27] VITALS: BP 97/63; O2SAT 97
[2025-01-20 08:23] VITALS: BP 148/74; O2SAT 94
[2025-01-20 08:41] LABS: BASO % 0.2 % (0.1-1.2); EOS # 0.00 (0.04-0.54); EOS % 0.0 % (0.7-7.0); LYMPH # 0.98 (1.18-3.74); LYMPH % 17.0 % (19.3-53.1); MEAN PLATELET VOLUME 9.40 fl (9.4-12.4); MONO # 0.15 (0.24-0.82); MONO % 2.6 % (4.7-12.5); NEUT # 4.44 (1.56-6.13); NEUT % 77.2 % (34.0-71.1); RED CELL DISTRIBUTION WIDTH 19.2 % (11.6-14.4)
[2025-01-20 09:10] LABS: INR 1.13
[2025-01-20 09:22] LABS: BUN CREA RATIO 16.0 (7.0-25.0); CREATININE SERUM 1.14 mg/dL (0.55-1.02); GFR 44.88; GLUCOSE FASTING 138.0 mg/dL (65-100); OSMOLALITY SERUM 282.0 MOSM/KG (275-295)
[2025-01-20 16:54] VITALS: BP 127/80; O2SAT 99
[2025-01-21 01:43] VITALS: BP 100/53; O2SAT 98
[2025-01-21 08:00] VITALS: BP 126/73; O2SAT 97
[2025-01-21] MEDS ORDERED: EMOLLIENTS 6 OZ BOTTLE TOP SCH (10:29)
[2025-01-21 18:55] VITALS: BP 131/77; O2SAT 97
[2025-01-22] VITALS: BP 117/70; O2SAT 100
[2025-01-22 06:53] LABS: BASO % 0.3 % (0.1-1.2); EOS # 0.26 (0.04-0.54); EOS % 2.8 % (0.7-7.0); LYMPH # 2.20 (1.18-3.74); LYMPH % 23.8 % (19.3-53.1); MEAN PLATELET VOLUME 10.70 fl (9.4-12.4); MONO # 0.77 (0.24-0.82); MONO % 8.3 % (4.7-12.5); NEUT # 5.77 (1.56-6.13); NEUT % 62.6 % (34.0-71.1); RED CELL DISTRIBUTION WIDTH 20.4 % (11.6-14.4)
[2025-01-22 07:26] LABS: BUN CREA RATIO 16.0 (7.0-25.0); CREATININE SERUM 0.83 mg/dL (0.55-1.02); GFR 64.73; GLUCOSE FASTING 89.0 mg/dL (65-100); OSMOLALITY SERUM 290.0 MOSM/KG (275-295)
[2025-01-22 08:00] VITALS: BP 147/70; O2SAT 99
[2025-01-22] MEDS ORDERED: AMINO ACIDS 1 EACH TABLET PO SCH (13:00)
[2025-01-22 16:00] VITALS: BP 138/83; O2SAT 94
[2025-01-23 01:23] VITALS: BP 122/81; O2SAT 99
[2025-01-23 08:00] VITALS: BP 122/71; O2SAT 99
[2025-01-23 17:32] VITALS: BP 126/67; O2SAT 95
[2025-01-24 00:57] VITALS: BP 121/68; O2SAT 98
[2025-01-24 08:34] VITALS: BP 134/68; O2SAT 97
[2025-01-24 16:00] VITALS: BP 137/76; O2SAT 96
[2025-01-24] MEDS ORDERED: CLONAZEPAM 1 MG TABLET PO SCH (21:00)
[2025-01-25 00:37] VITALS: BP 117/69; O2SAT 98
[2025-01-25 06:41] LABS: BASO % 0.7 % (0.1-1.2); EOS # 0.44 (0.04-0.54); EOS % 6.0 % (0.7-7.0); LYMPH # 1.99 (1.18-3.74); LYMPH % 26.9 % (19.3-53.1); MEAN PLATELET VOLUME 9.60 fl (9.4-12.4); MONO # 0.90 (0.24-0.82); NEUT # 3.91 (1.56-6.13); NEUT % 52.8 % (34.0-71.1); RED CELL DISTRIBUTION WIDTH 20.0 % (11.6-14.4)
[2025-01-25 06:50] LABS: MONO % 12.2 % (4.7-12.5)
[2025-01-25 07:08] LABS: ALT/SGPT 16.0 U/L (12-78); AST/SGOT 36.0 U/L (15-37); BILIRUBIN TOTAL 0.32 mg/dL (0.3-1.2); BUN CREA RATIO 17.0 (7.0-25.0); CREATININE SERUM 0.66 mg/dL (0.55-1.02); GFR 84.32; GLOBULINA 3.7 G/DL (2.4-3.5); GLUCOSE FASTING 86.0 mg/dL (65-100); OSMOLALITY SERUM 286.0 MOSM/KG (275-295)
[2025-01-25 08:00] VITALS: BP 137/80; O2SAT 99
[2025-01-25 17:08] VITALS: BP 149/79; O2SAT 100
[2025-01-26 01:54] VITALS: BP 140/84; O2SAT 99
[2025-01-26 05:24] LABS: BASO % 0.4 % (0.1-1.2); EOS # 0.44 (0.04-0.54); EOS % 5.3 % (0.7-7.0); LYMPH # 2.03 (1.18-3.74); LYMPH % 24.5 % (19.3-53.1); MEAN PLATELET VOLUME 9.30 fl (9.4-12.4); MONO # 0.96 (0.24-0.82); MONO % 11.6 % (4.7-12.5); NEUT # 4.77 (1.56-6.13); NEUT % 57.4 % (34.0-71.1); RED CELL DISTRIBUTION WIDTH 19.4 % (11.6-14.4)
[2025-01-26 08:00] VITALS: BP 134/78; O2SAT 95
[2025-01-26] MEDS ORDERED: JARDIANCE10 MG PO (09:55)
[2025-01-26] MEDS ORDERED: PRE PROTEIN1 EACH PO (09:55)
[2025-01-26] MEDS ORDERED: INTESTINEX680 M1 PO (09:55)
[2025-01-26] MEDS ORDERED: TOPROL XL50 M1 PO (09:55)
[2025-01-26] MEDS ORDERED: PANTOPRAZOLE SO40 MG PO (09:55)
[2025-01-26] MEDS ORDERED: IRON FOLATE PL1 EACH PO (10:37)
== END 2025-01-26 13:48 | disposition home or self-care (01) | DRG 391 ==
LOC: ER 22:41 → SURG 01-08 18:45 → SURH 01-08 18:45
PROVIDERS: General Practice; Internal Medicine; Internal Medicine Nephrology; ADMIT Internal Medicine; ATTEND Internal Medicine
PROC: BW21YZZ Computerized Tomography (CT Scan) of Abdomen and Pelvis using Other Contrast (ICD-10-PCS; 2025-01-08)
PROC: 30233N1 Transfusion of Nonautologous Red Blood Cells into Peripheral Vein, Percutaneous Approach (ICD-10-PCS; principal; 2025-01-09)
PROC: B246ZZZ Ultrasonography of Right and Left Heart (ICD-10-PCS; 2025-01-13)
PROC: B420YZZ Computerized Tomography (CT Scan) of Abdominal Aorta using Other Contrast (ICD-10-PCS; 2025-01-19)
DX: K52.89 Other specified noninfective gastroenteritis and colitis (principal); I50.33 Acute on chronic diastolic (congestive) heart failure; K62.5 Hemorrhage of anus and rectum; N17.9 Acute kidney failure, unspecified; B37.49 Other urogenital candidiasis; E87.0 Hyperosmolality and hypernatremia; E87.3 Alkalosis; I13.0 Hypertensive heart and chronic kidney disease with heart failure and stage 1 through stage 4 chronic kidney disease, or unspecified chronic kidney disease; D64.89 Other specified anemias; I88.0 Nonspecific mesenteric lymphadenitis; K64.4 Residual hemorrhoidal skin tags; N28.1 Cyst of kidney, acquired; K76.89 Other specified diseases of liver; N18.9 Chronic kidney disease, unspecified; F41.8 Other specified anxiety disorders; Z88.6 Allergy status to analgesic agent; Z88.0 Allergy status to penicillin; R05.9 Cough, unspecified
CPT/HCPCS: 74175

== ENCOUNTER 2025-01-29 06:35 | Inpatient (IN) | payer OTHER ==
[~2025-01-29] VITALS: Ht 157.5 cm; Wt 81.6 kg
[~2025-01-29 06:35] MED LIST changes: +IRON FOLATE PL1 EACH PO; +JARDIANCE10 MG PO; +PANTOPRAZOLE SO40 MG PO; +PRE PROTEIN1 EACH PO; +TELMISARTAN-HC1 EACH PO; +TOPROL XL50 M1 PO
--- NOTE | 2025-01-29 06:40 | NUR ---
SE RECIBE PTE ALERTA EN AMBULANCIA ACOMPANADA DE FAMILIAR QUIEN REFIERE PTE ROMAN ESTADO PRESENTANDO SANGRADO RECTAL DESDE LAS [address]. SE MIDEN SV Y SE UBICA.
--- NOTE | 2025-01-29 09:19 | NUR ---
RN DUNCAN EDUCA A PACIENTE SOBRE TRATAMIENTO SOLICITADO POR MEDICO EN TUR[place],LA MISMA REFIERE ENTENDER Y SE PROCEDE A LOGAN MUESTRAS DE LABORATORIO ROHINI ORDEN MEDICA Y BAJO MEDIDAS ASEPTICAS. SE MANTIENE PENDIENTE A REALIZAR X-RAY.
[2025-01-29 09:53] LABS: BASO % 0.5 % (0.1-1.2); EOS # 0.27 (0.04-0.54); EOS % 4.2 % (0.7-7.0); LYMPH # 1.46 (1.18-3.74); LYMPH % 23.0 % (19.3-53.1); MEAN PLATELET VOLUME 10.50 fl (9.4-12.4); MONO # 0.69 (0.24-0.82); MONO % 10.8 % (4.7-12.5); NEUT # 3.90 (1.56-6.13); NEUT % 61.3 % (34.0-71.1); RED CELL DISTRIBUTION WIDTH 20.2 % (11.6-14.4)
[2025-01-29 10:30] LABS: INR 1.09
[2025-01-29 10:34] LABS: ALT/SGPT 20.0 U/L (12-78); AST/SGOT 34.0 U/L (15-37); BILIRUBIN TOTAL 0.77 mg/dL (0.3-1.2); BUN CREA RATIO 12.0 (7.0-25.0); COVID-19 AG NEGATIVE (NEGATIVE); CREATININE SERUM 0.78 mg/dL (0.55-1.02); GFR 69.54; GLOBULINA 5.2 G/DL (2.4-3.5); GLUCOSE FASTING 84.0 mg/dL (65-100); OSMOLALITY SERUM 281.0 MOSM/KG (275-295)
[2025-01-29] MEDS ORDERED: METOPROLOL SUCCINATE 50 MG TAB.SR.24H PO ONE (13:15)
--- NOTE | 2025-01-29 13:47 | NUR ---
SE LE DA A LOGAN MEDICAMENTO ORDENADOS Y LE RELAIZA ABG'S
[2025-01-29 14:11] LABS: ABG PH 7.456 (7.35-7.45); ABG PO2 60.3 mmHg (80-100); BICARBONATE 34.5 mmol/l (23-25)
[2025-01-29 14:12] LABS: o2 21 %
[2025-01-29 16:28] LABS: BASO % 0.5 % (0.1-1.2); EOS # 0.20 (0.04-0.54); EOS % 3.0 % (0.7-7.0); LYMPH # 1.37 (1.18-3.74); LYMPH % 20.8 % (19.3-53.1); MEAN PLATELET VOLUME 9.20 fl (9.4-12.4); MONO # 0.67 (0.24-0.82); MONO % 10.2 % (4.7-12.5); NEUT # 4.29 (1.56-6.13); NEUT % 65.2 % (34.0-71.1); RED CELL DISTRIBUTION WIDTH 19.4 % (11.6-14.4)
[2025-01-29] MEDS ORDERED: PANTOPRAZOLE SODIUM 40 MG/VIAL VIAL IV PUSH SCH (21:52)
[2025-01-29] MEDS ORDERED: CIPROFLOXACIN IN 5 % DEXTROSE 200 ML IV SCH (21:53)
[2025-01-29] MEDS ORDERED: METOPROLOL TARTRATE 50 MG TABLET PO SCH (21:56)
[2025-01-29] MEDS ORDERED: LOSARTAN/HYDROCHLOROTHIAZIDE 1 UDTAB TABLET PO SCH (21:56)
[2025-01-29] MEDS ORDERED: GUAIFENESIN 200 MG/10 ML BLIST.PACK PO SCH (21:59)
[2025-01-29] MEDS ORDERED: 0.9 % SODIUM CHLORIDE 1,000 ML IV SCH (22:00)
[2025-01-30] MEDS ORDERED: GUAIFENESIN 200 MG/10 ML BLIST.PACK PO ONE ×3 (00:16→09:14)
[2025-01-30 00:45] VITALS: BP 138/70; O2SAT 98
[2025-01-30 07:23] VITALS: BP 120/71; O2SAT 100
[2025-01-30 07:53] LABS: URINE APPEARANCE Clear; URINE BILIRRUBIN Negative (NEGATIVE); URINE BLOOD Negative; URINE COLOR Yellow; URINE GLUCOSE Negative (NEGATIVE); URINE KETONE Negative (NEGATIVE); URINE LEUKOCYTE Negative; URINE NITRATE Negative; URINE PROTEIN Trace (NEGATIVE); URINE UROBILINOGEN 0.2 E.U./dl
[2025-01-30 07:54] LABS: URINE BACTERIA 5.9 uL (0.0-1933); URINE EPITHELIAL CELLS 6.3 uL (0.0-38.8); URINE RBC 3.3 uL (0.0-20.8); URINE WBC 5.0 uL (0.0-23.2)
[2025-01-30 08:28] LABS: URINE CAST 0.43 uL (0.0-1.40)
[2025-01-30] MEDS ORDERED: METRONIDAZOLE/SODIUM CHLORIDE 500 MG/100 ML PIGGYBACK IV ONE (09:14)
[2025-01-30] MEDS ORDERED: METOPROLOL TARTRATE 25 MG TABLET PO ONE (09:14)
[2025-01-30 11:25] VITALS: BP 111/69; O2SAT 96
[2025-01-30 15:54] VITALS: BP 128/68; O2SAT 98
[2025-01-30] MEDS ORDERED: LEVALBUTEROL HCL 0.63 MG/3 ML SOLUTION IH SCH (18:43)
[2025-01-31 00:39] VITALS: BP 93/61; O2SAT 97
[2025-01-31 08:00] VITALS: BP 123/61; O2SAT 94
[2025-01-31 15:57] VITALS: BP 105/67; O2SAT 100
[2025-01-31] MEDS ORDERED: LACTOBACILLUS ACIDOPHILUS 1 CAP CAP PO SCH (17:00)
[2025-02-01 00:34] VITALS: BP 100/66; O2SAT 100
[2025-02-01 08:13] VITALS: BP 109/63; O2SAT 114
[2025-02-01 08:32] LABS: BASO % 0.3 % (0.1-1.2); EOS # 0.13 (0.04-0.54); EOS % 1.8 % (0.7-7.0); LYMPH # 1.66 (1.18-3.74); LYMPH % 23.3 % (19.3-53.1); MEAN PLATELET VOLUME 10.40 fl (9.4-12.4); MONO # 1.20 (0.24-0.82); NEUT # 4.09 (1.56-6.13); NEUT % 57.4 % (34.0-71.1); RED CELL DISTRIBUTION WIDTH 18.3 % (11.6-14.4)
[2025-02-01 08:59] LABS: MONO % 16.8 % (4.7-12.5)
[2025-02-01] MEDS ORDERED: BUMETANIDE 0.5 MG TABLET PO SCH (09:00)
[2025-02-01 09:08] LABS: BUN CREA RATIO 15.0 (7.0-25.0); CREATININE SERUM 0.88 mg/dL (0.55-1.02); GFR 60.5; GLUCOSE FASTING 100.0 mg/dL (65-100); OSMOLALITY SERUM 280.0 MOSM/KG (275-295)
[2025-02-01] MEDS ORDERED: POTASSIUM CHLORIDE IN WATER 40 MEQ/100 ML PIGGYBAG IV SCH (11:00)
[2025-02-01 15:40] VITALS: BP 108/64; O2SAT 96
[2025-02-01] MEDS ORDERED: POTASSIUM PHOS,M-BASIC-D-BASIC 18 MM in 0.9 % SODIUM CHLORIDE 500 ML IV ONE (19:00)
[2025-02-02 00:18] VITALS: BP 103/67; O2SAT 99
[2025-02-02] MEDS ORDERED: ACETAMINOPHEN 500 MG GEL..CAP PO PRN (08:27)
[2025-02-02 11:13] VITALS: BP 125/75; O2SAT 97
[2025-02-02] MEDS ORDERED: MORPHINE SULFATE 2 MG/ML CARTRIDGE IV PRN (13:00)
[2025-02-02 13:18] VITALS: BP 116/60
[2025-02-02 16:30] VITALS: BP 134/72; O2SAT 97
[2025-02-02] MEDS ORDERED: CLONAZEPAM 1 MG TABLET PO SCH (21:00)
[2025-02-02] MEDS ORDERED: ONDANSETRON HCL 2 MG/ML VIAL IV PRN (22:00)
[2025-02-03 00:39] VITALS: BP 129/75; O2SAT 99
[2025-02-03 08:00] VITALS: BP 107/58; O2SAT 97
[2025-02-03 10:57] LABS: BASO % 0.4 % (0.1-1.2); EOS # 0.09 (0.04-0.54); EOS % 1.8 % (0.7-7.0); LYMPH # 0.96 (1.18-3.74); LYMPH % 19.5 % (19.3-53.1); MEAN PLATELET VOLUME 10.20 fl (9.4-12.4); MONO # 1.14 (0.24-0.82); NEUT # 2.70 (1.56-6.13); NEUT % 54.8 % (34.0-71.1); RED CELL DISTRIBUTION WIDTH 17.8 % (11.6-14.4)
[2025-02-03 11:19] LABS: BUN CREA RATIO 16.0 (7.0-25.0); CREATININE SERUM 0.9 mg/dL (0.55-1.02); GFR 58.95; GLUCOSE FASTING 123.0 mg/dL (65-100); OSMOLALITY SERUM 283.0 MOSM/KG (275-295)
[2025-02-03 11:36] LABS: MONO % 23.1 % (4.7-12.5)
[2025-02-03 11:37] LABS: BAND MAN 4.0 %; LYMPHOCYTE MAN 28.0 %; MONOCYTE MAN 13.0 %; NEUTROPHILS MAN 53.0 %
[2025-02-03 16:00] VITALS: BP 123/60; O2SAT 99
[2025-02-03] MEDS ORDERED: AMINO ACIDS/PROTEIN HYDROLYS 30 ML BLIST.PACK PO SCH (17:00)
[2025-02-03] MEDS ORDERED: POTASSIUM PHOS,M-BASIC-D-BASIC 18 MM in 0.9 % SODIUM CHLORIDE 250 ML IV ONE (23:00)
[2025-02-03] MEDS ORDERED: MAGNESIUM SULFATE IN WATER 50 ML IV ONE (23:00)
[2025-02-04 01:26] VITALS: BP 121/79; O2SAT 98
[2025-02-04 08:22] VITALS: BP 102/51; O2SAT 95
[2025-02-04] MEDS ORDERED: POTASSIUM CHLORIDE 20MEQ/100ML H2O PB IV SCH (09:00)
[2025-02-04] MEDS ORDERED: MAGNESIUM SULFATE IN WATER 50 ML IV SCH (12:00)
[2025-02-04] MEDS ORDERED: POTASSIUM PHOS,M-BASIC-D-BASIC 18 MM in 0.9 % SODIUM CHLORIDE 250 ML IV NR (13:00)
[2025-02-04 16:00] VITALS: BP 115/71; O2SAT 97
[2025-02-04] MEDS ORDERED: POLYETHYLENE GLYCOL 3350 238 GM POWDER PO NR (16:45)
[2025-02-04] MEDS ORDERED: POTASSIUM CHLORIDE IN WATER 40 MEQ/100 ML PIGGYBAG IV SCH (17:00)
[2025-02-05 02:23] VITALS: BP 107/68; O2SAT 96
[2025-02-05] MEDS ORDERED: NA PHOS,M-B/NA PHOS,DI-BA 1 BOTTLE ENEMA RECTAL NR (06:00)
[2025-02-05 08:00] VITALS: BP 100/61; O2SAT 98
[2025-02-05] MEDS ORDERED: MIDAZOLAM HCL 2 MG/2 ML VIAL IV ONE (11:45)
[2025-02-05] MEDS ORDERED: fentaNYL CITRATE 50 MCG/ML AMPUL IV PUSH ONE (11:45)
[2025-02-05] MEDS ORDERED: LEVALBUTEROL HCL 0.63 MG/3 ML SOLUTION IH SCH (13:00)
[2025-02-05 16:00] VITALS: BP 109/68; O2SAT 95
[2025-02-06 00:24] VITALS: BP 112/65; O2SAT 100
[2025-02-06 07:28] LABS: BASO % 0.5 % (0.1-1.2); EOS # 0.18 (0.04-0.54); EOS % 2.9 % (0.7-7.0); LYMPH # 1.67 (1.18-3.74); LYMPH % 26.8 % (19.3-53.1); MEAN PLATELET VOLUME 10.30 fl (9.4-12.4); MONO # 1.24 (0.24-0.82); NEUT # 3.08 (1.56-6.13); NEUT % 49.3 % (34.0-71.1); RED CELL DISTRIBUTION WIDTH 17.3 % (11.6-14.4)
[2025-02-06 07:31] LABS: MONO % 19.9 % (4.7-12.5)
[2025-02-06 07:59] LABS: ALT/SGPT 7.0 U/L (12-78); AST/SGOT 22.0 U/L (15-37); BILIRUBIN TOTAL 0.52 mg/dL (0.3-1.2); BUN CREA RATIO 20.0 (7.0-25.0); CREATININE SERUM 0.85 mg/dL (0.55-1.02); GFR 62.97; GLOBULINA 3.8 G/DL (2.4-3.5); GLUCOSE FASTING 103.0 mg/dL (65-100); OSMOLALITY SERUM 276.0 MOSM/KG (275-295)
[2025-02-06 08:00] VITALS: BP 123/71; O2SAT 99
[2025-02-06] MEDS ORDERED: POTASSIUM CHLORIDE IN WATER 100 ML IV NR (11:00)
[2025-02-06] MEDS ORDERED: HYDROCODONE/CHLORPHEN P-STIREX 5 ML ML PO SCH (17:00)
[2025-02-06] MEDS ORDERED: LEVALBUTEROL HCL 0.63 MG/3 ML SOLUTION IH SCH (17:00)
[2025-02-06 17:03] VITALS: BP 124/69; O2SAT 100
[2025-02-07 01:38] VITALS: BP 114/72; O2SAT 98
[2025-02-07 08:17] VITALS: BP 119/73; O2SAT 97
[2025-02-07 16:00] VITALS: BP 91/55; O2SAT 99
[2025-02-08 01:05] VITALS: BP 120/75; O2SAT 100
[2025-02-08 06:11] LABS: BASO % 0.5 % (0.1-1.2); EOS # 0.30 (0.04-0.54); EOS % 3.8 % (0.7-7.0); LYMPH # 2.76 (1.18-3.74); LYMPH % 34.9 % (19.3-53.1); MEAN PLATELET VOLUME 10.60 fl (9.4-12.4); MONO # 1.16 (0.24-0.82); NEUT # 3.58 (1.56-6.13); NEUT % 45.3 % (34.0-71.1); RED CELL DISTRIBUTION WIDTH 17.3 % (11.6-14.4)
[2025-02-08 06:30] LABS: MONO % 14.7 % (4.7-12.5)
[2025-02-08 08:00] VITALS: BP 108/69; O2SAT 98
[2025-02-08] MEDS ORDERED: METHYLPREDNISOLONE SOD SUCC 40 MG VIAL IV SCH (09:00)
[2025-02-08 10:04] LABS: INR 1.21
[2025-02-08 11:06] LABS: ALT/SGPT 9.0 U/L (12-78); AST/SGOT 20.0 U/L (15-37); BILIRUBIN TOTAL 0.55 mg/dL (0.3-1.2); BUN CREA RATIO 44.0 (7.0-25.0); CREATININE SERUM 1.01 mg/dL (0.55-1.02); GFR 51.61; GLOBULINA 4.4 G/DL (2.4-3.5); GLUCOSE FASTING 131.0 mg/dL (65-100); OSMOLALITY SERUM 285.0 MOSM/KG (275-295)
[2025-02-08] MEDS ORDERED: MAGNESIUM SULFATE IN WATER 50 ML IV NR (13:00)
[2025-02-08 16:30] VITALS: BP 99/58; O2SAT 97
[2025-02-08] MEDS ORDERED: POTASSIUM CHLORIDE IN WATER 40 MEQ/100 ML PIGGYBAG IV SCH (18:00)
[2025-02-09 00:09] VITALS: BP 125/71; O2SAT 99
[2025-02-09 08:23] VITALS: BP 141/82; O2SAT 99
[2025-02-09] MEDS ORDERED: ACETAZOLAMIDE 250 MG TABLET PO SCH (09:23)
[2025-02-09] MEDS ORDERED: 0.9 % SODIUM CHLORIDE 1,000 ML IV SCH (09:30)
[2025-02-09 16:00] VITALS: BP 119/73; O2SAT 95
[2025-02-10 00:40] VITALS: BP 139/78; O2SAT 99
[2025-02-10 08:00] VITALS: BP 119/73; BP 128/76; O2SAT 95; O2SAT 97
[2025-02-10 17:32] VITALS: BP 128/76; O2SAT 98
[2025-02-11 00:59] VITALS: BP 126/72; O2SAT 96
[2025-02-11 08:14] LABS: BUN CREA RATIO 68.0 (7.0-25.0); CREATININE SERUM 0.82 mg/dL (0.55-1.02); GFR 65.64; GLUCOSE FASTING 122.0 mg/dL (65-100); OSMOLALITY SERUM 296.0 MOSM/KG (275-295)
[2025-02-11] MEDS ORDERED: POTASSIUM CHLORIDE IN WATER 40 MEQ/100 ML PIGGYBAG IV NR (10:00)
[2025-02-11 10:36] VITALS: BP 125/72; O2SAT 96
[2025-02-11] MEDS ORDERED: IPRATROPIUM BROMIDE 0.5 MG/2.5 ML AMPUL.NEB IH SCH (12:42)
[2025-02-11 15:29] LABS: BASO % 0.0 % (0.1-1.2); EOS # 0.00 (0.04-0.54); EOS % 0.0 % (0.7-7.0); LYMPH # 0.62 (1.18-3.74); LYMPH % 11.2 % (19.3-53.1); MEAN PLATELET VOLUME 10.20 fl (9.4-12.4); MONO # 0.21 (0.24-0.82); MONO % 3.8 % (4.7-12.5); NEUT # 4.68 (1.56-6.13); NEUT % 84.5 % (34.0-71.1); RED CELL DISTRIBUTION WIDTH 17.2 % (11.6-14.4)
[2025-02-11 16:00] VITALS: BP 136/82; O2SAT 95
[2025-02-12 01:17] VITALS: BP 131/75; O2SAT 96
[2025-02-12 08:45] VITALS: BP 161/80; O2SAT 95
[2025-02-12 16:11] VITALS: BP 131/69; O2SAT 95
[2025-02-12] MEDS ORDERED: POTASSIUM CHLORIDE IN WATER 40 MEQ/100 ML PIGGYBAG IV ONE (23:00)
[2025-02-13 00:37] VITALS: BP 113/69; O2SAT 98
[2025-02-13 09:30] VITALS: BP 115/61; O2SAT 96
[2025-02-13 12:43] LABS: BUN CREA RATIO 80.0 (7.0-25.0); CREATININE SERUM 0.96 mg/dL (0.55-1.02); GFR 54.72; GLUCOSE FASTING 97.0 mg/dL (65-100); OSMOLALITY SERUM 289.0 MOSM/KG (275-295)
[2025-02-13 16:00] VITALS: BP 106/68; O2SAT 95
== END 2025-02-13 21:02 | disposition home or self-care (01) | DRG 386 ==
LOC: ER 06:35 → MEDJ 22:47 → SEC-K 22:47 → SURH 01-30 10:35
PROVIDERS: Emergency Medicine; General Practice; Internal Medicine; ADMIT Internal Medicine; ATTEND Internal Medicine
PROC: 0T9B70Z Drainage of Bladder with Drainage Device, Via Natural or Artificial Opening (ICD-10-PCS; 2025-01-29)
PROC: BW21ZZZ Computerized Tomography (CT Scan) of Abdomen and Pelvis (ICD-10-PCS; 2025-01-29)
PROC: BB24ZZZ Computerized Tomography (CT Scan) of Bilateral Lungs (ICD-10-PCS; 2025-01-29)
PROC: 3E0F7SF Introduction of Other Gas into Respiratory Tract, Via Natural or Artificial Opening (ICD-10-PCS; 2025-01-30)
PROC: 3E0F7GC Introduction of Other Therapeutic Substance into Respiratory Tract, Via Natural or Artificial Opening (ICD-10-PCS; 2025-01-31)
PROC: 30233N1 Transfusion of Nonautologous Red Blood Cells into Peripheral Vein, Percutaneous Approach (ICD-10-PCS; 2025-02-01)
PROC: 0DBK8ZX Excision of Ascending Colon, Via Natural or Artificial Opening Endoscopic, Diagnostic (ICD-10-PCS; principal; 2025-02-05)
PROC: 0DBL8ZX Excision of Transverse Colon, Via Natural or Artificial Opening Endoscopic, Diagnostic (ICD-10-PCS; 2025-02-05)
PROC: 0DBN8ZX Excision of Sigmoid Colon, Via Natural or Artificial Opening Endoscopic, Diagnostic (ICD-10-PCS; 2025-02-05)
PROC: 0DBP8ZX Excision of Rectum, Via Natural or Artificial Opening Endoscopic, Diagnostic (ICD-10-PCS; 2025-02-05)
PROC: 0DBM8ZX Excision of Descending Colon, Via Natural or Artificial Opening Endoscopic, Diagnostic (ICD-10-PCS; 2025-02-05)
PROC: 0DBH8ZX Excision of Cecum, Via Natural or Artificial Opening Endoscopic, Diagnostic (ICD-10-PCS; 2025-02-05)
PROC: 02HV33Z Insertion of Infusion Device into Superior Vena Cava, Percutaneous Approach (ICD-10-PCS; 2025-02-05)
PROC: B548ZZA Ultrasonography of Superior Vena Cava, Guidance (ICD-10-PCS; 2025-02-05)
DX: K51.80 Other ulcerative colitis without complications (principal); K62.5 Hemorrhage of anus and rectum; N13.30 Unspecified hydronephrosis; D64.89 Other specified anemias; K64.4 Residual hemorrhoidal skin tags; K64.8 Other hemorrhoids; N32.0 Bladder-neck obstruction; E87.6 Hypokalemia; E86.0 Dehydration; R05.3 Chronic cough; I10 Essential (primary) hypertension; Z88.4 Allergy status to anesthetic agent; Z88.0 Allergy status to penicillin; Z74.01 Bed confinement status